=== PATIENT | female | born 1965 | race African-American/Black ===

== ENCOUNTER → 2019-06-11 | Outpatient (CLI) | payer BC ==
[2019-06-11 12:39] LABS: HGB 13.9 gm/dL (11.4-16.0); MCH 29.2 pg (25.0-35.0); MCHC 32.3 g/dL (31.0-37.0); MCV 90.7 fL (80.0-100.0); Mean Platelet Volume 6.9; Platelet Count 298 k/uL (150-450); RBC 4.74 m/uL (3.80-5.40); RDW 13.3 % (11.5-15.5); WBC 5.3 k/uL (3.8-10.6)
[2019-06-11 19:01] LABS: Follicle Stimulating Hormone 57.1 mIU/mL
== END | disposition home or self-care (01) ==
LOC: LABWHC1 11:38
PROVIDERS: ATTEND Obstetrics & Gynecology Obstetrics
DX: N95.1 Menopausal and female climacteric states (principal); G47.00 Insomnia, unspecified; N95.2 Postmenopausal atrophic vaginitis
CPT/HCPCS: 36415; 83001; 84439; 84443; 85027

== ENCOUNTER 2020-04-06 20:21 | Emergency (ER) | payer BC, OTHER ==
[2020-04-06 20:29] VITALS: TEMP 98.5
[2020-04-06 21:00] LABS: Basophils # (A) 0.2 k/uL (0-0.2); Basophils % (A) 2 %; Eosinophils # (A) 0.3 k/uL (0-0.7); Eosinophils % (A) 4 %; HCT 40.1 % (34.0-46.0); HGB 13.5 gm/dL (11.4-16.0); Lymphocytes # (A) 3.2 k/uL (1.0-4.8); Lymphocytes % (A) 33 %; MCH 29.8 pg (25.0-35.0); MCHC 33.7 g/dL (31.0-37.0); MCV 88.5 fL (80.0-100.0); Mean Platelet Volume 6.9; Monocytes # (A) 0.6 k/uL (0-1.0); Monocytes % (A) 6 %; Neutrophils # (A) 5.2 k/uL (1.3-7.7); Neutrophils % (A) 52 %; Platelet Count 328 k/uL (150-450); RBC 4.53 m/uL (3.80-5.40); RDW 13.5 % (11.5-15.5); WBC 9.8 k/uL (3.8-10.6)
--- NOTE | 2020-04-06 21:01 | ED ---
General Adult HPI - General Chief complaint: Shortness of Breath Stated complaint: SOB/Chest Pain/Sore Throat Time Seen by Provider: 04/06/20 20:37 Source: patient Mode of arrival: ambulatory Limitations: no limitations - History of Present Illness Initial comments: 55-year-old female patient presents to the emergency department today for evaluation of chest tightness, shortness of breath, chest pain, and hoarseness. States that she started having symptoms 6 days ago. States she is more short of breath than usual. States she has a history of asthma. Denies any fever or chills. States she has no appetite. Denies nausea or vomiting. States she has had sweats. Patient denies any recent rash, cough, shortness of breath, chest pain, abdominal pain, diarrhea, constipation, back pain, numbness, tingling, dizziness, weakness, hematuria, dysuria, urinary urgency, urinary frequency, headache, visual changes, or any other complaints. She has done home breathing treatments today. Denies any other medications. - Related Data Home Medications Medication Instructions Recorded Confirmed Albuterol Inhaler [Ventolin Hfa 2 puff INHALATION RT-QID PRN 04/06/20 04/06/20 Inhaler] Albuterol Nebulized [Ventolin 2.5 mg INHALATION RT-QID PRN 04/06/20 04/06/20 Nebulized] Fluticasone/Salmeterol [Advair 1 puff INHALATION RT-DAILY 04/06/20 04/06/20 250-50 Diskus] Previous Rx's Medication Instructions Recorded predniSONE 50 mg PO DAILY #5 tablet 04/06/20 Allergies Allergy/AdvReac Type Severity Reaction Status Date / Time No Known Allergies Allergy Verified 04/06/20 20:29 Review of Systems ROS Statement: Those systems with pertinent positive or pertinent negative responses have been documented in the HPI. ROS Other: All systems not noted in ROS Statement are negative. Past Medical History Past Medical History: Asthma History of Any Multi-Drug Resistant Organisms: None Reported Past Surgical History: Cholecystectomy Additional Past Surgical History / Comment(s): mass removed from right breast. tubal ligation. carpal tunnel surgery right hand. D&C. left knee 2019 Past Psychological History: No Psychological Hx Reported Smoking Status: Never smoker Past Alcohol Use History: None Reported Past Drug Use History: None Reported General Exam Limitations: no limitations General appearance: alert, in no apparent distress, other (This is a well developed, well nourished adult female patient in no acute distress. Vital signs upon presentation are temperature 98.5F, pulse 89, respirations 20, blood pressure 153/81, pulse ox 100% on room air.) Respiratory exam: Present: wheezes (Faint expiratory wheezing the posterior lung ricketts). Absent: normal lung sounds bilaterally, respiratory distress, rales, rhonchi, stridor Cardiovascular Exam: Present: regular rate, normal rhythm, normal heart sounds. Absent: systolic murmur, diastolic murmur, rubs, gallop, clicks GI/Abdominal exam: Present: soft, normal bowel sounds. Absent: distended, tenderness, guarding, rebound, rigid Neurological exam: Present: alert, oriented X3, CN II-XII intact Psychiatric exam: Present: normal affect, normal mood Skin exam: Present: warm, dry, intact, normal color. Absent: rash Course Vital Signs 04/06/20 04/06/20 04/06/20 20:23 21:21 21:23 Temperature 98.5 F Pulse Rate 89 76 Respiratory 20 16 16 Rate Blood Pressure 153/81 142/77 O2 Sat by Pulse 100 99 Oximetry EKG Findings - EKG Comments: EKG Findings:: EKG obtained at 2034 shows normal sinus rhythm with sinus arrhythmia. Ventricular rate is 92, para interval 134, QRS duration 84, QT 346, QTc 427. No evidence of ST elevation or depression. Medical Decision Making - Medical Decision Making 55-year-old female patient presents to the emergency department today for evaluation of shortness of breath, chest discomfort, fatigue, and cough. Patient has been sick since [place]. Physical examination did reveal expiratory wheezing in the posterior lung ricketts. Labs reviewed and are unremarkable. Troponins negative. EKG shows sinus rhythm with no ST elevation or depression. Chest x-ray is clear. COVID-19 test is negative. I did discuss findings and results with the patient. We'll start steroids for possible asthma exacerbation. She is instructed follow up with her primary care physician for recheck in 1-2 days. Return parameters were discussed in detail. She verb alizes understanding and agrees with this plan. - Lab Data Result diagrams: 04/06/20 20:51 04/06/20 20:51 Lab Results 04/06/20 04/06/20 04/06/20 Range/Units 20:51 20:51 20:51 WBC 9.8 (3.8-10.6) k/uL RBC 4.53 (3.80-5.40) m/uL Hgb 13.5 (11.4-16.0) gm/dL Hct 40.1 (34.0-46.0) % MCV 88.5 (80.0-100.0) fL MCH 29.8 (25.0-35.0) pg MCHC 33.7 (31.0-37.0) g/dL RDW 13.5 (11.5-15.5) % Plt Count 328 (150-450) k/uL MPV 6.9 Neutrophils % 52 % Lymphocytes % 33 % Monocytes % 6 % Eosinophils % 4 % Basophils % 2 % Neutrophils # 5.2 (1.3-7.7) k/uL Lymphocytes # 3.2 (1.0-4.8) k/uL Monocytes # 0.6 (0-1.0) k/uL Eosinophils # 0.3 (0-0.7) k/uL Basophils # 0.2 (0-0.2) k/uL Sodium 140 (137-145) mmol/L Potassium 4.0 (3.5-5.1) mmol/L Chloride 105 (98-107) mmol/L Carbon Dioxide 28 (22-30) mmol/L Anion Gap 7 mmol/L BUN 12 (7-17) mg/dL Creatinine 0.74 (0.52-1.04) mg/dL Est GFR (CKD-EPI)AfAm >90 (>60 ml/min/1.73 sqM) Est GFR (CKD-EPI)NonAf >90 (>60 ml/min/1.73 sqM) Glucose 124 H (74-99) mg/dL Calcium 9.6 (8.4-10.2) mg/dL Total Bilirubin 0.5 (0.2-1.3) mg/dL AST 26 (14-36) U/L ALT 21 (4-34) U/L Alkaline Phosphatase 71 (38-126) U/L Troponin I <0.012 (0.000-0.034) ng/mL Total Protein 7.5 (6.3-8.2) g/dL Albumin 4.2 (3.5-5.0) g/dL Coronavirus (PCR) (Not Detectd) 04/06/20 Range/Units 20:51 WBC (3.8-10.6) k/uL RBC (3.80-5.40) m/uL Hgb (11.4-16.0) gm/dL Hct (34.0-46.0) % MCV (80.0-100.0) fL MCH (25.0-35.0) pg MCHC (31.0-37.0) g/dL RDW (11.5-15.5) % Plt Count (150-450) k/uL MPV Neutrophils % % Lymphocytes % % Monocytes % % Eosinophils % % Basophils % % Neutrophils # (1.3-7.7) k/uL Lymphocytes # (1.0-4.8) k/uL Monocytes # (0-1.0) k/uL Eosinophils # (0-0.7) k/uL Basophils # (0-0.2) k/uL Sodium (137-145) mmol/L Potassium (3.5-5.1) mmol/L Chloride (98-107) mmol/L Carbon Dioxide (22-30) mmol/L Anion Gap mmol/L BUN (7-17) mg/dL Creatinine (0.52-1.04) mg/dL Est GFR (CKD-EPI)AfAm (>60 ml/min/1.73 sqM) Est GFR (CKD-EPI)NonAf (>60 ml/min/1.73 sqM) Glucose (74-99) mg/dL Calcium (8.4-10.2) mg/dL Total Bilirubin (0.2-1.3) mg/dL AST (14-36) U/L ALT (4-34) U/L Alkaline Phosphatase (38-126) U/L Troponin I (0.000-0.034) ng/mL Total Protein (6.3-8.2) g/dL Albumin (3.5-5.0) g/dL Coronavirus (PCR) Not Detected (Not Detectd) - Radiology Data Radiology results: report reviewed, image reviewed One view x-ray of the chest was obtained. Report is reviewed in its entirety. Impression by Dr. Montes shows normal chest. Normal heart. Disposition Clinical Impression: Viral syndrome, Asthma exacerbation Disposition: HOME SELF-CARE Condition: Good Instructions (If sedation given, give patient instructions): Asthma (ED), Viral Syndrome (ED) Additional Instructions: Continue breathing treatments. Complete steroid prescription filled. Follow up with her primary care physician for recheck in 1-2 days. Return to the emergency department for any new, worsening, or concerning symptoms. Prescriptions: predniSONE 50 mg PO DAILY #5 tablet Is patient prescribed a controlled substance at d/c from ED?: No Referrals: Homa Sarkar MD [Primary Care Provider] - 1-2 days Time of Disposition: 22:22
[2020-04-06 21:09] LABS: ALT 21 U/L (4-34); AST 26 U/L (14-36); African American GFR (CKD) >90 (>60 ml/min/1.73 sqM); Albumin 4.2 g/dL (3.5-5.0); Alkaline Phosphatase 71 U/L (38-126); Anion Gap 7 mmol/L; Blood Urea Nitrogen 12 mg/dL (7-17); Calcium 9.6 mg/dL (8.4-10.2); Carbon Dioxide 28 mmol/L (22-30); Chloride 105 mmol/L (98-107); Glucose 124 mg/dL (74-99); Non-African American GFR(CKD) >90 (>60 ml/min/1.73 sqM); Sodium 140 mmol/L (137-145); Total Bilirubin 0.5 mg/dL (0.2-1.3); Total Protein 7.5 g/dL (6.3-8.2)
[2020-04-06] MEDS: methylPREDNISolone SOD SUCCI 125 MG/2 ML VIAL IV STA (21:19)
--- NOTE | 2020-04-06 21:27 | XR ---
EXAMINATION TYPE: XR chest 1V portable DATE OF EXAM: 04/06/2020 COMPARISON: NONE HISTORY: Chest pain TECHNIQUE: Single view FINDINGS: Heart and mediastinum are normal. Lungs are clear. Diaphragm is normal. Bony thorax appears normal. IMPRESSION: Normal chest. Normal heart.
[2020-04-06] MEDS: ALBUTEROL NEB (CONC) 2.5 MG/0.5 ML INHALATION STA (22:29)
[2020-04-06] MEDS: ALBUTEROL NEBULIZED 2.5 MG/3 ML INHALATION STA (22:29)
[2020-04-06] MEDS: IPRATROPIUM 0.5 MG/2.5 ML NEBU INHALATION STA (22:29)
[2020-04-06 23:29] VITALS: BP 134/112; PULSE 83; RESP 12
== END 2020-04-06 23:15 | disposition home or self-care (01) ==
LOC: EC 20:21
DX: B34.9 Viral infection, unspecified (principal); J45.901 Unspecified asthma with (acute) exacerbation; J45.909 Unspecified asthma, uncomplicated; Z79.51 Long term (current) use of inhaled steroids; Z20.828 Contact with and (suspected) exposure to other viral communicable diseases; Z90.49 Acquired absence of other specified parts of digestive tract
CPT/HCPCS: 36415; 94640; 93005; 80053; 84484; 85025; 87635; 71045; 99285; J2930

== ENCOUNTER → 2021-04-27 | Outpatient (CLI) | payer OTHER ==
[2021-04-27 11:17] VITALS: BP 164/84; PULSE 78; RESP 16; TEMP 98.1
--- NOTE | 2021-04-27 11:41 | P.GSHP ---
History of Present Illness H&P Date: 04/27/21 Chief Complaint: mass right breast and under left arm Danette is a 56 year old female seen for Claudia Lauren regarding a mass in her right breast and fulness in her left axilla. She had a bilateral mammogram done March 07 and was told this was negative however an ultrasound of the left breast/axilla was performed after which she was told a core biopsy should be done. The results of these are being obtained. She states the lump in her right breast has not changed. She had a biopsy in 2008 which was benign removed form her breast and she thinks she is feeling scar tissue. In the left axilla she had not noted any change, but persistent fullness. Has not had any further surgery on her breast besides the right breast biopsy. She is not complaining of any trauma or infection or breast. Note from Dr. Bhatti office reviewed Caffeine:none nicotine: none chocolate: occasional Family history: sister: bilateral breast cancer; done at 54 Hormonal History: menarche: 17 , breast fed: yes, age at first : 26 menopause: going through it now BCP: none hormones: none Surgical history: tubaligation uterine ablation gallbladder right breast biopsy carpel tunnel right hand left knee torn meniscus Medical history: asthma HTN anxiety prediabetic Social History: nicotine: none alcohol: occasional drugs: none - Constitutional Constitutional: Reports sweats - EENT Eyes: bilateral blurred vision Ears: deny: decreased hearing, tinnitus Ears, nose, mouth and throat: Denies headache, Denies sore throat - Breasts Breasts: bilateral: as per HPI - Cardiovascular Comment: HTN Cardiovascular: Denies chest pain, Denies shortness of breath - Respiratory Comment: asthma Respiratory: Denies cough, Denies 7 - Gastrointestinal Gastrointestinal: Denies abdominal pain, Denies diarrhea, Denies nausea, Denies vomiting - Menstruation Comment: going through menopause now - Musculoskeletal Musculoskeletal: Denies myalgias - Integumentary Integumentary: Denies pruritus, Denies rash - Neurological Neurological: Denies numbness, Denies weakness - Psychiatric Psychiatric: Reports anxiety, Reports depression - Endocrine Endocrine: Reports fatigue - Hematologic/Lymphatic Comment: none - Allergic/Immunologic Allergic/Immunologic: Reports seasonal allergies Past Medical History Past Medical History: Asthma, Hypertension History of Any Multi-Drug Resistant Organisms: None Reported Past Surgical History: Breast Surgery, Cholecystectomy, Orthopedic Surgery Additional Past Surgical History / Comment(s): mass removed from right breast 2009. tubal ligation/uterine ablation. carpal tunnel surgery right hand. D&C x2. left knee 2019 Past Anesthesia/Blood Transfusion Reactions: No Reported Reaction Past Psychological History: Anxiety, Depression Smoking Status: Never smoker Past Alcohol Use History: None Reported Past Drug Use History: None Reported Medications and Allergies Home Medications Medication Instructions Recorded Confirmed Type Albuterol Inhaler [Ventolin Hfa 2 puff INHALATION RT-QID PRN 04/06/20 04/27/21 History Inhaler] Albuterol Nebulized [Ventolin 2.5 mg INHALATION RT-QID PRN 04/06/20 04/27/21 History Nebulized] Fluticasone/Salmeterol [Advair 1 puff INHALATION RT-DAILY 04/06/20 04/06/20 History 250-50 Diskus] Sertraline [Zoloft] 50 mg PO DAILY 04/27/21 04/27/21 History Allergies Allergy/AdvReac Type Severity Reaction Status Date / Time No Known Allergies Allergy Verified 04/27/21 11:10 Surgical - Exam Vital Signs Temp Pulse Resp BP 98.1 F 78 16 164/84 04/27/21 11:11 04/27/21 11:11 04/27/21 11:11 04/27/21 11:11 BMI 40.4 - General no distress - Eyes normal ocular movement - ENT no hearing loss - Neck trachea midline - Respiratory normal respiratory effort, clear to auscultation - Cardiovascular Rhythm: regular Heart Sounds: normal: S1, S2 - Abdomen Abdomen: soft - Integumentary normal turgor - Neurologic no disoriented, no combative - Musculoskeletal normal gait - Psychiatric oriented to time, oriented to person, oriented to place, speech is normal, memory intact Breast Exam: BRA: 46DD insepection: bilateral grade 3 ptosis palpation: right breast: Multi-positional exam fibrocystic changes, no dominant masses or nodules of concern, well-healed scar noted prior biopsy with postop changes but no discrete mass Right axilla: No adenopathy of concern Left breast: Multi-positional exam fibrocystic changes no discrete dominant masses or nodules of concern, attention to the area of the axilla and lateral breast does not reveal any discrete mass Left axilla: No discrete mass or adenopathy of concern Results Awaiting mammogram and ultrasound results Assessment and Plan Assessment: Impression: Right breast fullness near the prior scar believed to be related to prior biopsy Left axillary fullness no discrete mass appreciated on today's exam Fibrocystic breast changes Family history of breast cancer sister having bilateral breast cancer Mammogram and ultrasound results being obtained unknown if sister had genetic testing Plan: obtain mammogram and ultrasound information and follow up CC: Dr. Jean Baptiste, Claudia Lauren
== END ==
LOC: WWCWWP 11:00
PROVIDERS: ATTEND Surgery
DX: N60.11 Diffuse cystic mastopathy of right breast (principal); J45.909 Unspecified asthma, uncomplicated; I10 Essential (primary) hypertension; F41.9 Anxiety disorder, unspecified; Z80.3 Family history of malignant neoplasm of breast; Z79.51 Long term (current) use of inhaled steroids; Z79.899 Other long term (current) drug therapy

== ENCOUNTER 2021-12-08 15:53 | Emergency (ER) | payer OTHER ==
[2021-12-08 16:36] VITALS: TEMP 98.1
[2021-12-08] MEDS ORDERED: KETOROLAC 15 MG/ML 1 ML VIAL IM STA (18:16)
[2021-12-08 19:46] LABS: Basophils # (A) 0.1 k/uL (0-0.2); Basophils % (A) 1 %; Eosinophils # (A) 0.3 k/uL (0-0.7); Eosinophils % (A) 3 %; HCT 36.2 % (34.0-46.0); HGB 11.7 gm/dL (11.4-16.0); Lymphocytes # (A) 2.6 k/uL (1.0-4.8); Lymphocytes % (A) 25 %; MCH 29.1 pg (25.0-35.0); MCHC 32.4 g/dL (31.0-37.0); MCV 89.9 fL (80.0-100.0); Mean Platelet Volume 6.7; Monocytes # (A) 0.5 k/uL (0-1.0); Monocytes % (A) 4 %; Neutrophils # (A) 6.6 k/uL (1.3-7.7); Neutrophils % (A) 63 %; Platelet Count 440 k/uL (150-450); RBC 4.03 m/uL (3.80-5.40); RDW 14.5 % (11.5-15.5); WBC 10.4 k/uL (3.8-10.6)
[2021-12-08 20:04] LABS: Calcium 9.4 mg/dL (8.4-10.2); Potassium 3.6 mmol/L (3.5-5.1); Total Bilirubin 0.4 mg/dL (0.2-1.3); Total Protein 7.4 g/dL (6.3-8.2)
[2021-12-08] MEDS ORDERED: HYDROcodone/APAP 7.5-325MG 1 EACH TAB PO ONE (23:41)
[2021-12-08] MEDS ORDERED: CEPHALEXIN 500 MG CAP PO STA (23:41)
[2021-12-08] MEDS ORDERED: ACET/COD 300 MG/30 MG STARTER PACK 6 TAB BTL PO STA (23:41)
--- NOTE | 2021-12-08 23:44 | ED ---
Skin/Abscess/FB HPI - General Chief complaint: Skin/Abscess/Foreign Body Stated complaint: Poss UTI Time Seen by Provider: 12/08/21 18:05 Source: patient Mode of arrival: ambulatory Limitations: no limitations - History of Present Illness Initial comments: Patient is a 56-year-old female presenting with chief complaint of right breast skin discomfort. Patient states that about a week ago she developed a skin tear on the underside of the left breast, that has since changed into redness, swelling, and discomfort on palpation. No fever or chills. Patient also states that she has had multiple skin lesions which started as some bumps that can be itchy or painful, they then crust over. No chest pain or shortness of breath. No abdominal pain, nausea, vomiting. No neck pain. No nipple discharge. No lumps felt on the breast. - Related Data Home Medications Medication Instructions Recorded Confirmed Albuterol Inhaler [Ventolin Hfa 2 puff INHALATION RT-QID PRN 04/06/20 04/27/21 Inhaler] Albuterol Nebulized [Ventolin 2.5 mg INHALATION RT-QID PRN 04/06/20 04/27/21 Nebulized] Fluticasone Propion/Salmeterol 1 puff INHALATION RT-DAILY 04/06/20 04/06/20 [Advair 250-50 Diskus] Sertraline [Zoloft] 50 mg PO DAILY 04/27/21 04/27/21 Previous Rx's Medication Instructions Recorded Cephalexin [Keflex] 500 mg PO Q6HR 10 Days #40 cap 12/08/21 Allergies Allergy/AdvReac Type Severity Reaction Status Date / Time No Known Allergies Allergy Verified 12/08/21 16:36 Review of Systems ROS Statement: Those systems with pertinent positive or pertinent negative responses have been documented in the HPI. ROS Other: All systems not noted in ROS Statement are negative. Past Medical History Past Medical History: Asthma, Hypertension History of Any Multi-Drug Resistant Organisms: None Reported Past Surgical History: Breast Surgery, Cholecystectomy, Orthopedic Surgery Additional Past Surgical History / Comment(s): mass removed from right breast 2 009. tubal ligation/uterine ablation. carpal tunnel surgery right hand. D&C x2. left knee 2019 Past Anesthesia/Blood Transfusion Reactions: No Reported Reaction Past Psychological History: Anxiety, Depression Smoking Status: Never smoker Past Alcohol Use History: None Reported Past Drug Use History: None Reported General Exam Limitations: no limitations General appearance: alert, in no apparent distress Head exam: Present: atraumatic, normocephalic, normal inspection Eye exam: Present: normal appearance, EOMI. Absent: scleral icterus, periorbital swelling Neck exam: Present: normal inspection Respiratory exam: Present: normal lung sounds bilaterally. Absent: respiratory distress, wheezes, rales, rhonchi, stridor Cardiovascular Exam: Present: regular rate, normal rhythm, normal heart sounds. Absent: systolic murmur, diastolic murmur, rubs, gallop, clicks Neurological exam: Present: alert, oriented X3, CN II-XII intact Psychiatric exam: Present: normal affect, normal mood Skin exam: Present: warm, dry Expanded Description of rash: Present: crusting (Some pustules, mostly crusted over) Course Vital Signs 12/08/21 16:33 Temperature 98.1 F Pulse Rate 82 Respiratory 16 Rate Blood Pressure 120/64 O2 Sat by Pulse 99 Oximetry Medical Decision Making - Medical Decision Making Patient is a 56-year-old female presenting with chief complaint of right breast discomfort. Patient has noticed redness of the skin and tenderness on palpation. Patient has multiple scabbed over lesions on the chest, breasts, and arms. They begin as pustules, they can be pruritic or painful, they've been depressed over. Patient has no fever or chills, no chest pain or shortness of breath, no nausea or vomiting. Labwork shows no leukocytosis. Breast ultrasound is obtained, radiologist faxed over report to me, assessment reads no sonographic evidence for acute abnormality and the patient indicated area of concern. If clinical concern persists further evaluation and a dedicated breast imaging center could be performed on a nonemergent basis. I sent a viral testing for monkey pocks amongst other viruses. I treated the patient for cellulitis with Keflex 500 mg 4 times a day for 10 days. I informed the patient of these findings and the plan. Follow-up with PCP. Report back to ER with any new or worsening symptoms. Discussed return parameters and answered all questions. Patient conveyed verbal understanding and agreed to the plan. I discussed this case in detail with my attending Dr. Jackman - Lab Data Result diagrams: 12/08/21 19:42 12/08/21 19:42 Lab Results 12/08/21 12/08/21 Range/Units 19:42 19:42 WBC 10.4 (3.8-10.6) k/uL RBC 4.03 (3.80-5.40) m/uL Hgb 11.7 (11.4-16.0) gm/dL Hct 36.2 (34.0-46.0) % MCV 89.9 (80.0-100.0) fL MCH 29.1 (25.0-35.0) pg MCHC 32.4 (31.0-37.0) g/dL RDW 14.5 (11.5-15.5) % Plt Count 440 (150-450) k/uL MPV 6.7 Neutrophils % 63 % Lymphocytes % 25 % Monocytes % 4 % Eosinophils % 3 % Basophils % 1 % Neutrophils # 6.6 (1.3-7.7) k/uL Lymphocytes # 2.6 (1.0-4.8) k/uL Monocytes # 0.5 (0-1.0) k/uL Eosinophils # 0.3 (0-0.7) k/uL Basophils # 0.1 (0-0.2) k/uL Sodium 141 (137-145) mmol/L Potassium 3.6 (3.5-5.1) mmol/L Chloride 101 (98-107) mmol/L Carbon Dioxide 25 (22-30) mmol/L Anion Gap 15 mmol/L BUN 25 H (7-17) mg/dL Creatinine 1.18 H (0.52-1.04) mg/dL Est GFR (CKD-EPI)AfAm 61 (>60 ml/min/1.73 sqM) Est GFR (CKD-EPI)NonAf 53 (>60 ml/min/1.73 sqM) Glucose 104 H (74-99) mg/dL Calcium 9.4 (8.4-10.2) mg/dL Total Bilirubin 0.4 (0.2-1.3) mg/dL AST 38 H (14-36) U/L ALT 47 H (4-34) U/L Alkaline Phosphatase 92 (38-126) U/L Total Protein 7.4 (6.3-8.2) g/dL Albumin 4.0 (3.5-5.0) g/dL Disposition Clinical Impression: Cellulitis Disposition: HOME SELF-CARE Condition: Good Instructions (If sedation given, give patient instructions): Cellulitis (ED) Additional Instructions: Follow-up with PCP and [facility]. Report back to ER with any new or worsening symptoms. Take medication as prescribed. Prescriptions: Cephalexin [Keflex] 500 mg PO Q6HR 10 Days #40 cap Is patient prescribed a controlled substance at d/c from ED?: No Referrals: Emiliano Jean Baptiste DO [Primary Care Provider] - 1-2 days Time of Disposition: 23:44
[2021-12-09 00:17] VITALS: BP 142/64; PULSE 86; RESP 18
== END 2021-12-09 00:17 | disposition home or self-care (01) ==
LOC: EC 15:53
DX: N61.0 Mastitis without abscess (principal); J45.909 Unspecified asthma, uncomplicated; I10 Essential (primary) hypertension; Z79.51 Long term (current) use of inhaled steroids
CPT/HCPCS: 36415; 80053; 85025; 76642; 99284; 96372; J1885

== ENCOUNTER → 2022-01-28 | Outpatient (CLI) | payer OTHER ==
[2022-01-28 11:33] LABS: Basophils # (A) 0.06 X 10*3/uL (0.00-0.10); Basophils % (A) 0.8 %; Eosinophils # (A) 0.38 X 10*3/uL (0.04-0.35); Eosinophils % (A) 5.2 %; HCT 39.8 % (37.2-46.3); HGB 12.6 g/dL (12.0-15.0); Immature Grans, Automated 0.1 %; Lymphocytes # (A) 3.11 X 10*3/uL (0.90-5.00); Lymphocytes % (A) 42.5 %; MCH 28.1 pg (27.0-32.0); MCHC 31.7 g/dL (32.0-37.0); MCV 88.6 fL (80.0-97.0); Mean Platelet Volume 9.4 fL (9.5-12.2); Monocytes % (A) 9.6 %; NRBC Per 100 WBC 0 /100 WBCS (0.0-0.0); Neutrophils # (A) 3.06 X 10*3/uL (1.80-7.70); Neutrophils % (A) 41.8 %; Platelet Count 364 X 10*3/uL (140-440); RBC 4.49 X 10*6/uL (4.10-5.20); RDW 15.2 % (11.5-14.5); WBC 7.32 X 10*3/uL (4.50-10.00)
[2022-01-28 11:59] LABS: African American GFR (CKD) 76.4 (60.0-200.0); Albumin 4.4 g/dL (3.8-4.9); Albumin/Globulin Ratio 1.59 (1.60-3.17); BUN/Creat Ratio 13.55 Ratio (12.00-20.00); Blood Urea Nitrogen 13.2 mg/dL (9.0-27.0); Calcium 9.4 mg/dL (8.7-10.3); Globulin 2.8 g/dL (1.6-3.3); Non-African American GFR(CKD) 65.9 (60.0-200.0); Potassium 4.3 mmol/L (3.5-5.5); T4, Free (Free Thyroxine) 0.85 ng/dL (0.800-1.800); Total Bilirubin 0.7 mg/dL (0.30-1.20); Total Protein 7.2 g/dL (6.2-8.2)
== END | disposition home or self-care (01) ==
LOC: LABWHC1 08:05
PROVIDERS: ATTEND Family Medicine
DX: I10 Essential (primary) hypertension (principal); E11.9 Type 2 diabetes mellitus without complications; E55.9 Vitamin D deficiency, unspecified; E66.01 Morbid (severe) obesity due to excess calories; R60.1 Generalized edema
CPT/HCPCS: 36415; 80053; 82306; 84439; 84443; 85025